=== PATIENT | female | born 1995 | race Caucasian/White ===

== ENCOUNTER 2016-06-17 05:58 | Inpatient (IN) | payer OTHER ==
--- NOTE | 2016-06-17 06:20 | EDPHY ---
H & P Stated Complaint: DKA Time Seen by Provider: 06/17/16 06:08 HPI/ROS: Chief complaint: Nausea and vomiting, ? DKA HPI: 20-year-old type 1 diabetic female presenting having woken up at 4 o' clock this morning with nausea and vomiting. Patient states she has vomited multiple times since then and is concerned that she might be going into DKA. Patient states she has been in DKA 3 times in the past and this feels similar. Denies any other recent illness. No fevers or chills. No cough. Does have some abdominal cramping associated with this. Takes NovoLog and Lantus. She carb counts for her NovoLog giving herself 1 unit for every 3 g of carbs. She takes 28 units of Lantus every evening. Last menstrual. Candid yesterday. She does not believe that she is . ROS: 10 point Review of Systems is negative except as noted in the HPI. Past medical history: Type 1 diabetes, hypothyroidism Medications: NovoLog 1 unit for every 3 g of carbs, Lantus 28 units, Synthroid Allergies: No known drug allergies Physical exam: Gen: Awake, Alert, anxious-appearing, hyperventilating HEENT: Nose: no rhinorrhea Eyes: PERRLA, EOMI Mouth: Moist mucosa Neck: Supple, no JVD Chest: nontender, lungs clear to auscultation Heart: S1, S2 normal, no murmur Abd: Soft, non-tender, no guarding Back: no CVA tenderness, no midline tenderness Ext: no edema, non-tender Skin: no rash Neuro: CN II-XII intact, Sensation grossly intact, Strength 5/5 in bilateral upper and lower extremities - Personal History LMP (Females 10-55): 1-7 Days Ago Current Tetanus/Diphtheria Vaccine: Yes - Medical/Surgical History Hx Asthma: Yes Hx Chronic Respiratory Disease: Yes Hx Diabetes: Yes Hx Cardiac Disease: No Hx Renal Disease: No Hx Cirrhosis: No Hx Alcoholism: No Hx HIV/AIDS: No Hx Splenectomy or Spleen Trauma: No Other PMH: PNEUMONIA, HYPOTHYroidism, DM TYPE 1, asthma, anxiety - Social History Smoking Status: Former smoker Constitutional: Initial Vital Signs Temperature (C) 35.5 C L 06/17/16 06:01 Heart Rate 130 H 06/17/16 06:01 Respiratory Rate 36 H 06/17/16 06:01 Blood Pressure 101/70 06/17/16 06:01 O2 Sat (%) 98 06/17/16 06:01 O2 Delivery Mode Room Air Allergies/Adverse Reactions: No Known Allergies Allergy (Verified 04/16/16 16:12) Home Medications: Medication Instructions Recorded Levothyroxine [Synthroid 50 mcg 50 mcg PO HS 07/15/13 (*)] Lisdexamfetamine Dimesylate 40 mg PO DAILY #10 capsule 01/09/15 [Vyvanse] Insulin Aspart [novoLOG] 2 - 5 unit SC AC #1 btl 02/27/15 Insulin Glargine [Lantus 100 28 units SC HS 06/19/15 UNITS/ML (*)] Medical Decision Making ED Course/Re-evaluation: I-STAT chemistry shows a blood sugar of 375 with a calculated anion gap of 24. No CO2 available yet. This is certainly consistent with possible DKA. I have ordered a L of normal saline IV over an hour. Potassium is 3.9. I have ordered 10 mEq of potassium over an hour as well. She has gotten Zofran. Will give her 0.5 mg of Ativan as well. Will hold off on insulin infusion until I get her formal chemistry back to confirm that she is acidotic. Patient weighs 60 kilos. I have estimated her to be moderately dehydrated, dose 7.5%. This calculates to a fluid deficit of 4.5 L which she will need over the course of the next 24-48 hours. Patient's white count noted to be 20. She has not have a focal source of infection clinically. I am awaiting a urinalysis which she has not had any UTI symptoms. No cough or shortness of breath. She has not had fevers recently. Patient's CO2 came back at 14, anion gap is 21, actual potassium is 4.6. I have discontinued the potassium replacement. Will start her on an insulin drip at a rate of 0.1 units/kilos per hour which at 60 kilos will come out to be 6 units an hour. Her fluid deficit shower down at 4.5 L. She has gotten an initial L over an hour here. I will replace her remainder of her deficit over the next 24 hours which is a little under 300 mL an hour IV. Case has been discussed with Dr. Fang, hospitalist. They will plan for admission to the ICU for further care. At this point I do not see a focal source of infection as the trigger for DKA. She did take her Lantus last night. He does not have any respiratory symptoms. Certainly could have an early viral syndrome. - Data Points Laboratory Results: Laboratory Results 06/17/16 06:35 06/17/16 06:55 06/17/16 06/17/16 06/17/16 07:17 06:55 06:55 WBC RBC Hgb POC Hgb Hct POC Hct MCV MCH MCHC RDW Plt Count MPV Neut % (Auto) Lymph % (Auto) [place] % (Auto) Eos % (Auto) Baso % (Auto) Nucleat RBC Rel Count Absolute Neuts (auto) Absolute Lymphs (auto) Absolute Monos (auto) Absolute Eos (auto) Absolute Basos (auto) Absolute Nucleated RBC Immature Gran % Immature Gran # POC Sodium Sodium 137 mEq/L mEq/L (134-144) POC Potassium Potassium 4.6 mEq/L mEq/L (3.5-5.2) POC Chloride Chloride 102 mEq/L mEq/L (97-110) Carbon Dioxide 14 mEq/l L mEq/l (22-31) Anion Gap 21 mEq/L H mEq/L (8-16) POC BUN BUN 12 mg/dL mg/dL (7-23) Creatinine 0.6 mg/dL mg/dL (0.6-1.0) POC Creatinine Estimated GFR > 60 Glucose 372 mg/dL H mg/dL (70-100) POC Glucose Calcium 10.0 mg/dL mg/dL (8.5-10.4) Beta-Hydroxybutyrate Pending Beta HCG, Qual NEGATIVE Serum Ketones Cancelled 06/17/16 06/17/16 06:35 06:20 WBC 20.34 10^3/uL H 10^3/uL (3.80-9.50) RBC 4.56 10^6/uL 10^6/uL (4.18-5.33) Hgb 14.4 g/dL g/dL (12.6-16.3) POC Hgb 15.3 gm/dL gm/dL (12.3-15.9) Hct 41.4 % % (38.0-47.0) POC Hct 45 % % (35.5-47.5) MCV 90.8 fL fL (81.5-99.8) MCH 31.6 pg pg (27.9-34.1) MCHC 34.8 g/dL g/dL (32.4-36.7) RDW 13.4 % % (11.5-15.2) Plt Count 359 10^3/uL 10^3/uL (150-400) MPV 9.8 fL fL (8.7-11.7) Neut % (Auto) 73.2 % % (39.3-74.2) Lymph % (Auto) 15.8 % % (15.0-45.0) [place] % (Auto) 6.9 % % (4.5-13.0) Eos % (Auto) 2.1 % % (0.6-7.6) Baso % (Auto) 0.7 % % (0.3-1.7) Nucleat RBC Rel Count 0.0 % % (0.0-0.2) Absolute Neuts (auto) 14.88 10^3/uL H 10^3/uL (1.70-6.50) Absolute Lymphs (auto) 3.22 10^3/uL H 10^3/uL (1.00-3.00) Absolute Monos (auto) 1.40 10^3/uL H 10^3/uL (0.30-0.80) Absolute Eos (auto) 0.43 10^3/uL H 10^3/uL (0.03-0.40) Absolute Basos (auto) 0.14 10^3/uL H 10^3/uL (0.02-0.10) Absolute Nucleated RBC 0.00 10^3/uL 10^3/uL (0-0.01) Immature Gran % 1.3 % H % (0.0-1.1) Immature Gran # 0.27 10^3/uL H 10^3/uL (0.00-0.10) POC Sodium 135 mEq/L mEq/L (134-144) Sodium POC Potassium 3.9 mEq/L mEq/L (3.3-5.0) Potassium POC Chloride 105 mEq/L mEq/L (96-108) Chloride Carbon Dioxide Anion Gap POC BUN 12 mg/dL mg/dL (7-23) BUN Creatinine POC Creatinine 0.4 mg/dL L mg/dL (0.6-1.2) Estimated GFR Glucose POC Glucose 375 mg/dL H mg/dL (70-100) Calcium Beta-Hydroxybutyrate Beta HCG, Qual Serum Ketones Medications Given: Discontinued Medications Sodium Chloride (Ns) 1,000 mls @ 0 mls/hr IV ONCE ONE PRN Reason: Wide Open Stop: 06/17/16 06:47 Last Admin: 06/17/16 06:35 Dose: 1,000 mls Lorazepam (Ativan Injection) 0.5 mg IVP EDNOW ONE Stop: 06/17/16 06:47 Last Admin: 06/17/16 06:50 Dose: 0.5 mg Lorazepam (Ativan Injection) 0.5 mg IVP EDNOW ONE Stop: 06/17/16 07:05 Last Admin: 06/17/16 07:08 Dose: 0.5 mg Ondansetron HCl (Zofran) 4 mg IVP EDNOW ONE Stop: 06/17/16 06:47 Last Admin: 06/17/16 06:35 Dose: 4 mg Point of Care Test Results: 06/17/16 06:20 POC Sodium 135 POC Potassium 3.9 POC Chloride 105 POC BUN 12 POC Creatinine 0.4 L POC Glucose 375 H Departure - Departure Referrals: NONE *PRIMARY CARE P,. [Primary Care Provider] - As per Instructions
[2016-06-17] MEDS ORDERED: ONDANSETRON 4 MG/2 ML VIAL ONE (06:21)
[2016-06-17] MEDS ORDERED: POTASSIUM Cl (KCl) 10 MEQ/100 ML BAG IV ONE (06:30)
[2016-06-17 06:43] LABS: RED BLOOD CELL COUNT 4.56 10^6/uL (4.18-5.33)
[2016-06-17] MEDS ORDERED: LORazepam 2 MG/ML INJ ONE ×2 (06:43→13:55)
[2016-06-17 06:44] LABS: % IMMATURE GRANULYOCYTES 1.3 % (0.0-1.1); ABSOLUTE IMMATURE GRANULOCYTES 0.27 10^3/uL (0.00-0.10); ADD DIFF? NO; ADD MORPH? NO; ADD SCAN? NO; ATYPICAL LYMPHOCYTE FLAG 10 (0-99); FRAGMENT RBC FLAG 0 (0-99); HEMATOCRIT 41.4 % (38.0-47.0); HEMOGLOBIN 14.4 g/dL (12.6-16.3); LEFT SHIFT FLG 10 (0-99); LIPEMIA HEMOLYSIS FLAG 90 (0-99); MEAN CELL HEMOGLOBIN 31.6 pg (27.9-34.1); MEAN CELL HEMOGLOBIN CONCENTR. 34.8 g/dL (32.4-36.7); MEAN CELL VOLUME 90.8 fL (81.5-99.8); MEAN PLATELET VOLUME 9.8 fL (8.7-11.7); PLATELET CLUMPS FLAG 0 (0-99); PLATELET COUNT 359 10^3/uL (150-400); RED CELL DISTRIBUTION WIDTH 13.4 % (11.5-15.2)
[2016-06-17] MEDS ORDERED: LORazepam 2 MG/ML INJ IVP ONE ×2 (06:46→07:04)
[2016-06-17] MEDS ORDERED: ONDANSETRON 4 MG/2 ML VIAL IVP ONE ×2 (06:46→08:26)
[2016-06-17] MEDS ORDERED: NS 1,000 ML IV ONE (06:46)
[2016-06-17] MEDS ORDERED: POTASSIUM Cl (KCl) 100 ML IV ONE (06:55)
[2016-06-17 07:24] LABS: ANION GAP 21 mEq/L (8-16); CARBON DIOXIDE 14 mEq/l (22-31); CHLORIDE 102 mEq/L (97-110); CREATININE 0.6 mg/dL (0.6-1.0); GLOMERULAR FILTRATION RATE > 60; GLUCOSE 372 mg/dL (70-100); POTASSIUM 4.6 mEq/L (3.5-5.2); SODIUM 137 mEq/L (134-144)
[2016-06-17] MEDS ORDERED: INSULIN REGULAR HUMAN 100 UNIT, COSIGN. REQUIRED 1 EA in NS 100 ML IV ONE (07:39)
[2016-06-17 09:18] LABS: COLOR PALE YELLOW; LEUKOCYTE ESTERASE,URINE NEGATIVE (NEGATIVE); NITRITE,URINE NEGATIVE (NEGATIVE)
--- NOTE | 2016-06-17 09:48 | PDGENHP ---
History and Physical - Chief Complaint nausea and vomiting - History of Present Illness 20 y/o female with DM1 with 3 previous admission for DKA since 2014 who presents to the ED today with nausea and vomiting. The nausea started last night prior to going to sleep. She awoke at 0400 with persistent nausea and vomiting and felt sweaty. She had run out of glucose test strips and took an Uber to the hospital where she was found to have a glucose of 372. She reports to be compliant with her home insulin regime of Lantus 28 units at bedtime as well as preprandial Novolog insulin 3-5units based on carbohydrate intake. She did miss her morning dose of Novolog. She denies any alcohol intake. She endorses proper storage of her Lantus. She denies fever or chills. Denies urinary complaints. Denies shortness of breath or chest pain. History Information - Allergies/Home Medication List Allergies/Adverse Reactions: No Known Allergies Allergy (Verified 04/16/16 16:12) Home Medications: Levothyroxine [Synthroid 50 mcg (*)] 50 mcg PO HS 07/15/13 [Last Taken 06/16/16] Insulin Glargine [Lantus 100 UNITS/ML (*)] 28 units SC HS 06/19/15 [Last Taken 06/16/16] I have personally reviewed and updated: family history, medical history, social history, surgical history Past Medical History: ADHD, hypothyroidism - Past Medical History asthma, diabetes type 1 - Surgical History Additional surgical history: sinus surgery - Family History Positive for: diabetes type I (father) - Social History Smoking Status: Former smoker Alcohol Use: None Drug Use: None Review of Systems ROS: 10pt was reviewed & negative except for what was stated in HPI & below Physical Exam Temp Pulse Resp BP Pulse Ox 37 C 105 H 20 119/52 L 96 06/17/16 08:08 06/17/16 08:08 06/17/16 08:08 06/17/16 08:08 06/17/16 08:08 Constitutional: no apparent distress, appears nourished, not in pain Ears, Nose, Mouth, Throat: moist mucous membranes, hearing normal, ears appear normal, no oral mucosal ulcers Cardiovascular: regular rate and rhythym, no murmur, rub, or gallop, No edema Respiratory: no respiratory distress, no rales or rhonchi, clear to auscultation Gastrointestinal: normoactive bowel sounds, soft, non-tender abdomen, no palpable masses, No guarding, No rebound Genitourinary: no bladder fullness, no bladder tenderness Skin: warm, normal color, no rashes or abrasions, no fluctuance, no induration, No mottled Musculoskeletal: full muscle strength, no muscle tenderness, normal joint ROM, no joint effusions Neurologic: AAOx3, CN II-XII Intact, No facial droop Psychiatric: interacting appropriately, not anxious, not encephalopathic, thought process linear Lab Data & Imaging Review 06/17/16 06:35 06/17/16 06:55 WBC 20.34 10^3/uL (3.80-9.50) H 06/17/16 06:35 RBC 4.56 10^6/uL (4.18-5.33) 06/17/16 06:35 Hgb 14.4 g/dL (12.6-16.3) 06/17/16 06:35 POC Hgb 15.3 gm/dL (12.3-15.9) 06/17/16 06:20 Hct 41.4 % (38.0-47.0) 06/17/16 06:35 POC Hct 45 % (35.5-47.5) 06/17/16 06:20 MCV 90.8 fL (81.5-99.8) 06/17/16 06:35 MCH 31.6 pg (27.9-34.1) 06/17/16 06:35 MCHC 34.8 g/dL (32.4-36.7) 06/17/16 06:35 RDW 13.4 % (11.5-15.2) 06/17/16 06:35 Plt Count 359 10^3/uL (150-400) 06/17/16 06:35 MPV 9.8 fL (8.7-11.7) 06/17/16 06:35 Neut % (Auto) 73.2 % (39.3-74.2) 06/17/16 06:35 Lymph % (Auto) 15.8 % (15.0-45.0) 06/17/16 06:35 [place] % (Auto) 6.9 % (4.5-13.0) 06/17/16 06:35 Eos % (Auto) 2.1 % (0.6-7.6) 06/17/16 06:35 Baso % (Auto) 0.7 % (0.3-1.7) 06/17/16 06:35 Nucleat RBC Rel Count 0.0 % (0.0-0.2) 06/17/16 06:35 Absolute Neuts (auto) 14.88 10^3/uL (1.70-6.50) H 06/17/16 06:35 Absolute Lymphs (auto) 3.22 10^3/uL (1.00-3.00) H 06/17/16 06:35 Absolute Monos (auto) 1.40 10^3/uL (0.30-0.80) H 06/17/16 06:35 Absolute Eos (auto) 0.43 10^3/uL (0.03-0.40) H 06/17/16 06:35 Absolute Basos (auto) 0.14 10^3/uL (0.02-0.10) H 06/17/16 06:35 Absolute Nucleated RBC 0.00 10^3/uL (0-0.01) 06/17/16 06:35 Immature Gran % 1.3 % (0.0-1.1) H 06/17/16 06:35 Immature Gran # 0.27 10^3/uL (0.00-0.10) H 06/17/16 06:35 POC Sodium 135 mEq/L (134-144) 06/17/16 06:20 Sodium 137 mEq/L (134-144) 06/17/16 06:55 POC Potassium 3.9 mEq/L (3.3-5.0) 06/17/16 06:20 Potassium 4.6 mEq/L (3.5-5.2) 06/17/16 06:55 POC Chloride 105 mEq/L (96-108) 06/17/16 06:20 Chloride 102 mEq/L (97-110) 06/17/16 06:55 Carbon Dioxide 14 mEq/l (22-31) L 06/17/16 06:55 Anion Gap 21 mEq/L (8-16) H 06/17/16 06:55 POC BUN 12 mg/dL (7-23) 06/17/16 06:20 BUN 12 mg/dL (7-23) 06/17/16 06:55 Creatinine 0.6 mg/dL (0.6-1.0) 06/17/16 06:55 POC Creatinine 0.4 mg/dL (0.6-1.2) L 06/17/16 06:20 Estimated GFR > 60 06/17/16 06:55 Glucose 372 mg/dL (70-100) H 06/17/16 06:55 POC Glucose 375 mg/dL (70-100) H 06/17/16 06:20 Calcium 10.0 mg/dL (8.5-10.4) 06/17/16 06:55 Beta-Hydroxybutyrate 6.20 mmol/L (0.02-0.27) H 06/17/16 07:17 Beta HCG, Qual NEGATIVE 06/17/16 06:55 Urine Color PALE YELLOW 06/17/16 08:45 Urine Appearance CLEAR 06/17/16 08:45 Urine pH 6.0 (5.0-7.5) 06/17/16 08:45 Ur Specific [place] 1.014 (1.002-1.030) 06/17/16 08:45 Urine Protein NEGATIVE (NEGATIVE) 06/17/16 08:45 Urine Ketones 2+ (NEGATIVE) H 06/17/16 08:45 Urine Blood 1+ (NEGATIVE) H 06/17/16 08:45 Urine Nitrate NEGATIVE (NEGATIVE) 06/17/16 08:45 Urine Bilirubin NEGATIVE (NEGATIVE) 06/17/16 08:45 Urine Urobilinogen NEGATIVE EU (0.2-1.0) 06/17/16 08:45 Ur Leukocyte Esterase NEGATIVE (NEGATIVE) 06/17/16 08:45 Urine RBC 1-3 /hpf (0-3) 06/17/16 08:45 Urine WBC 1-3 /hpf (0-3) 06/17/16 08:45 Ur Epithelial Cells TRACE /lpf (NONE-1+) 06/17/16 08:45 Urine Glucose 3+ (NEGATIVE) H 06/17/16 08:45 Serum Ketones Cancelled 06/17/16 06:55 Assessment & Plan Assessment: 20 year old female with history of IDDM presenting with # DKA with unknown precipitant -continue with phase 1 volume resuscitation per the protocol -cont IV insulin gtt until AG is closed and nausea is resolved # Leukocytosis without obvious source of infection
[2016-06-17] MEDS ORDERED: PROMETHAZINE HCL 25 MG/ML INJ IVP PRN (12:21)
[2016-06-17] MEDS ORDERED: ACETAMINOPHEN 325 MG TAB PO PRN (12:21)
[2016-06-17 13:11] LABS: ANION GAP 11 mEq/L (8-16); CALCIUM 8.3 mg/dL (8.5-10.4); CARBON DIOXIDE 15 mEq/l (22-31); CHLORIDE 113 mEq/L (97-110); CHOLESTEROL 187 mg/dL (140-200); CREATININE 0.5 mg/dL (0.6-1.0); GLOMERULAR FILTRATION RATE > 60; GLUCOSE 107 mg/dL (70-100); HIGH DENSITY LIPOPROTEIN 72 mg/dL (40-75); LDL/HDL RATIO 1.46 RATIO (1.00-3.22); LOW DENSITY LIPOPROTEIN 105 mg/dL (60-100); NON-HIGH DENSITY LIPOPROTEIN 115 mg/dL (90-129); POTASSIUM 4.6 mEq/L (3.5-5.2); SODIUM 139 mEq/L (134-144); TRIGLYCERIDE 53 mg/dL (35-135); VERY LOW DENSITY LIPOPROTEINS 10 mg/dL (8-25)
[2016-06-17 13:35] LABS: HEMOGLOBIN A1C 7.7 % (4.0-6.0)
[2016-06-17] MEDS: ONDANSETRON 4 MG/2 ML VIAL IVP PRN ×3 (13:36→23:15)
[2016-06-17] MEDS ORDERED: CEPACOL LOZENGE PO ONE (13:55)
[2016-06-17] MEDS ORDERED: INSULIN REGULAR HUMAN 100 UNIT/ML IVP PRN (14:47)
[2016-06-17] MEDS ORDERED: D50W 25 GM/50 ML SYR IVP PRN (14:47)
[2016-06-17] MEDS ORDERED: INSULIN REGULAR HUMAN 100 UNIT in NS 100 ML IV SCH (14:47)
[2016-06-17 17:56] LABS: ANION GAP 10 mEq/L (8-16); CALCIUM 8.4 mg/dL (8.5-10.4); CARBON DIOXIDE 18 mEq/l (22-31); CHLORIDE 108 mEq/L (97-110); CREATININE 0.5 mg/dL (0.6-1.0); GLOMERULAR FILTRATION RATE > 60; GLUCOSE 82 mg/dL (70-100); POTASSIUM 4.1 mEq/L (3.5-5.2); SODIUM 136 mEq/L (134-144)
[2016-06-17] MEDS: D5W 1/2 NS 1,000 ML IV SCH (19:30)
[2016-06-17] MEDS ORDERED: LEVOTHYROXINE 50 MCG TAB PO SCH (21:00)
[2016-06-17] MEDS ORDERED: INSULIN GLARGINE 100 UNITS/ML SYRINGE SC SCH (21:00)
[2016-06-17] MEDS: LORazepam 2 MG/ML INJ IVP SCH (23:15)
[2016-06-18] MEDS: INSULIN LISPRO 100 UNIT/ML SC SCH ×6 (00:14→18:23)
[2016-06-18 04:54] LABS: % IMMATURE GRANULYOCYTES 0.4 % (0.0-1.1); ABSOLUTE IMMATURE GRANULOCYTES 0.06 10^3/uL (0.00-0.10); ADD DIFF? NO; ADD MORPH? NO; ADD SCAN? NO; ATYPICAL LYMPHOCYTE FLAG 10 (0-99); FRAGMENT RBC FLAG 0 (0-99); HEMATOCRIT 37.4 % (38.0-47.0); HEMOGLOBIN 12.7 g/dL (12.6-16.3); LEFT SHIFT FLG 0 (0-99); LIPEMIA HEMOLYSIS FLAG 90 (0-99); MEAN CELL HEMOGLOBIN 31.2 pg (27.9-34.1); MEAN CELL VOLUME 91.9 fL (81.5-99.8); MEAN PLATELET VOLUME 9.5 fL (8.7-11.7); PLATELET CLUMPS FLAG 0 (0-99); PLATELET COUNT 290 10^3/uL (150-400); RED BLOOD CELL COUNT 4.07 10^6/uL (4.18-5.33); RED CELL DISTRIBUTION WIDTH 13.3 % (11.5-15.2)
[2016-06-18 05:31] LABS: ANION GAP 9 mEq/L (8-16); CARBON DIOXIDE 19 mEq/l (22-31); CHLORIDE 108 mEq/L (97-110); CREATININE 0.5 mg/dL (0.6-1.0); GLOMERULAR FILTRATION RATE > 60; GLUCOSE 128 mg/dL (70-100); SODIUM 136 mEq/L (134-144)
[2016-06-18] MEDS: LORazepam 2 MG/ML INJ IVP SCH ×3 (06:00→14:38)
[2016-06-18 08:28] VITALS: RESP 16
[2016-06-18] MEDS ORDERED: Lisdexamfetamine Dimesylate [Vyvanse] 40 MG PO SCH (09:00)
[2016-06-18] MEDS: D5W 1/2 NS 1,000 ML IV SCH (10:31)
[2016-06-18 15:42] VITALS: BP 112/68; PULSE 78; TEMP 98.6; O2SAT 96
--- NOTE | 2016-06-18 17:26 | GDS ---
[f rep st] DISCHARGE SUMMARY DISCHARGE DIAGNOSIS: Diabetic ketoacidosis, possibly triggered by gastroenteritis. HOSPITAL COURSE AND STAY BY PROBLEM: Diabetic ketoacidosis: The patient presented to the emergency department with nausea and vomiting and elevated blood sugar. The patient states that she has been compliant with her home dose of glargine and NovoLog insulin. The patient was initially treated in the intensive care unit on the DKA protocol with IV insulin and aggressive IV hydration. Insulin drip was stopped once her anion gap closed. She was restarted on her glargine on the evening of 06/17/2016. The patient has continued to have some nausea but, on d ay of discharge, she was able to tolerate her lunch and is no longer throwing up. She has not had a ny diarrhea. She has not had any fevers or chills. On the afternoon of discharge the patient states she does feel much better and is agreeable to disch arge home. PHYSICAL EXAMINATION: VITAL SIGNS: On day of discharge, blood pressure 112/68, pulse 78, respirato ry rate 16, O2 saturation 96% on room air. GENERAL: No acute distress. HEART: S1, S2. LUNGS: C lear. ABDOMEN: Soft, nontender, nondistended. No guarding or rebound tenderness. Normoactive bow el sounds. DISCHARGE MEDICATIONS: Please refer to discharge medication reconciliation in [facility] for details. Below is a preliminary list. New medications on hospital discharge: Zofran 4 mg ODT q.4 hours p.r.n. nausea and vomiting, #5 were given. Phenergan suppository 25 mg LA q.6 hours p.r.n. nausea and vomiting, dispense #2 were given, if Zofran is ineffective. DISCHARGE INSTRUCTIONS: The patient was discharged from the hospital where she was instructed to co ntinue her home glucose monitoring. She should follow up with her cleaning and washing equipment operator in the next few d ays. She should seek medical attention if she is unable to tolerate p.o. solids or fluids. /[id number]/MODL
== END 2016-06-18 18:48 | disposition home or self-care (01) | DRG 639 ==
LOC: F2N 09:42 → F3E 06-18 08:21
PROVIDERS: ADMIT Hospitalist; ATTEND Family Medicine
DX: E10.10 Type 1 diabetes mellitus with ketoacidosis without coma (principal); E03.9 Hypothyroidism, unspecified
CPT/HCPCS: 82947-QW; J1815; J2405; J2550

== ENCOUNTER 2016-09-10 21:52 | Emergency (ER) | payer OTHER ==
--- NOTE | 2016-09-10 22:44 | EDPHY ---
H & P Stated Complaint: lower abd cramping, N/V for 1 hour HPI/ROS: HPI CHIEF COMPLAINT: Lower abdominal pain, nausea, vomiting HISTORY OF PRESENT ILLNESS: This patient very pleasant 21-year-old female significant past medical history for type 1 diabetes, presents emergency room with sudden onset of severe sharp stabbing lower abdominal pain. States it happened approximately 2.5 hours ago. The symptoms persisted for an hour she had multiple episodes of vomiting. States she vomited 4 times nonbilious nonbloody. No diarrhea. No fever. Describes the pain as sharp stabbing lower abdomen. Nonradiating. States that she is 5 days late on her menstrual period. Today she developed some light vaginal spotting. States that she does not normally get severe menstrual cramps. Has never had severe pain like this. Currently her pain has resolved she does still feel nauseous. Past Medical History: Insulin-dependent diabetes, thyroid disease Past Surgical History: No abdominal surgeries Social History: Denies daily use of drugs alcohol tobacco products Family History: noncontributory ROS REVIEW OF SYSTEMS: A comprehensive 10 point review of systems is otherwise negative aside from elements mentioned in the history of present illness. Exam Constitutional triage nursing summary reviewed, vital signs reviewed, awake/ alert. Eyes normal conjunctivae and sclera, EOMI, PERRLA. HENT normal inspection, atraumatic, moist mucus membranes, no epistaxis, neck supple/ no meningismus, no raccoon eyes. Respiratory clear to auscultation bilaterally, normal breath sounds, no respiratory distress, no wheezing. Cardiovascular rate normal, regular rhythm, no murmur, no edema, distal pulses normal. Gastrointestinal soft, mild tenderness palpation right lower quadrant, no rebound, no guarding, normal bowel sounds, no distension, no pulsatile mass. Genitourinary no CVA tenderness. Musculoskeletal no midline vertebral tenderness, full range of motion, no calf swelling, no tenderness of extremities, no meningismus, good pulses, neurovascularly intact. Skin pink, warm, & dry, no rash, skin atraumatic. Neurologic awake, alert and oriented x 3, AAOx3, moves all 4 extremities equally, motor intact, sensory intact, CN II-XII intact, normal cerebellar, normal vision, normal speech. Psychiatric normal mood/affect. Heme/Lymph/Immune no lymphadenopathy. Differential diagnosis includes but is not limited to and in no particular order : Acute appendicitis, ruptured ovarian cyst, , appendicitis, gallbladder disease, diverticulitis, colitis, enteritis, perforated viscus, gastritis, GERD , esophagitis, urinary tract infection, pyelonephritis, kidney stones Medical Decision Making: Plan for this patient IV establishment, IV fluid bolus 1 L normal saline, IV Zofran 4 mg for nausea, she does not have any pain anymore will hold off on pain medicine. Check blood work including abdominal labs check and urinalysis. Given her right lower quadrant pain and nausea vomiting patient will need a CT scan abdomen pelvis with IV contrast rule out acute appendicitis. Re-evaluation: CT scan of the abdomen pelvis with IV contrast. The results of the study are negative for acute intra-abdominal process however unable to visualize the appendix due to no intra-abdominal fat, however there is no other concerning findings on CT specifically no right lower quadrant formation or lymph nodes or free fluid or free air or no signs of obstruction.. The study was read by Dr. Edwards I viewed the images myself on the PACS system. 0104AM: Re-examination at this time abdomen is soft nontender. No abdominal pain on exam. CT is unremarkable. Did explain we could not visualize her appendix however if she develops worsening abdominal pain fever vomiting she needs return emergency room she understands this. Blood work reviewed is unremarkable. She is feeling much better after IV fluids. She had 2 L here in emergency room. She is afebrile. Abdomen soft. No vomiting. Strict return precautions given she understands return emergency room for worsening symptoms abdominal pain fever vomiting. Source: Patient - Personal History LMP (Females 10-55): Over 28 Days Ago Current Tetanus/Diphtheria Vaccine: Unsure Current Tetanus Diphtheria and Acellular Pertussis (TDAP): Unsure - Medical/Surgical History Hx Asthma: Yes Hx Chronic Respiratory Disease: Yes Hx Diabetes: Yes Hx Cardiac Disease: No Hx Renal Disease: No Hx Cirrhosis: No Hx Alcoholism: No Hx HIV/AIDS: No Hx Splenectomy or Spleen Trauma: No Other PMH: PNEUMONIA, HYPOTHYroidism, DM TYPE 1, asthma, anxiety - Social History Smoking Status: Former smoker Constitutional: Initial Vital Signs Temperature (C) 36.6 C 09/10/16 21:59 Heart Rate 89 09/10/16 21:59 Respiratory Rate 18 09/10/16 21:59 Blood Pressure 130/90 H 09/10/16 21:59 O2 Sat (%) 99 09/10/16 21:59 O2 Delivery Mode Room Air Allergies/Adverse Reactions: No Known Allergies Allergy (Verified 04/16/16 16:12) Home Medications: Medication Instructions Recorded Levothyroxine [Synthroid 50 mcg 50 mcg PO HS 07/15/13 (*)] Lisdexamfetamine Dimesylate 40 mg PO DAILY #10 capsule 01/09/15 [Vyvanse] Insulin Aspart [novoLOG] 2 - 5 unit SC AC #1 btl 02/27/15 Insulin Glargine [Lantus 100 28 units SC HS 06/19/15 UNITS/ML (*)] Medical Decision Making - Diagnostics Imaging Results: Imaging Impressions Abdomen CT 09/10/16 22:49 Impression: No abnormality identified. Results discussed with Dr. Rubalcava. General information for patients regarding this examination can be found at [email or web address]. If you have questions or comments about this report, please contact me at (hospital) or [phone] (cell). - Data Points Laboratory Results: Laboratory Results 09/10/16 22:25 09/10/16 22:25 09/10/16 09/10/16 09/10/16 22:55 22:25 22:25 WBC RBC Hgb POC Hgb Hct POC Hct MCV MCH MCHC RDW Plt Count MPV Neut % (Auto) Lymph % (Auto) [place] % (Auto) Eos % (Auto) Baso % (Auto) Nucleat RBC Rel Count Absolute Neuts (auto) Absolute Lymphs (auto) Absolute Monos (auto) Absolute Eos (auto) Absolute Basos (auto) Absolute Nucleated RBC Immature Gran % Immature Gran # PT INR APTT VBG Lactic Acid 0.9 mmol/L mmol/L (0.7-2.1) POC Sodium Sodium 136 mEq/L mEq/L (134-144) POC Potassium Potassium 3.3 mEq/L L mEq/L (3.5-5.2) POC Chloride Chloride 104 mEq/L mEq/L (97-110) Carbon Dioxide 23 mEq/l mEq/l (22-31) Anion Gap 9 mEq/L mEq/L (8-16) POC BUN BUN 11 mg/dL mg/dL (7-23) Creatinine 0.5 mg/dL L mg/dL (0.6-1.0) POC Creatinine Estimated GFR > 60 Glucose 108 mg/dL H mg/dL (70-100) POC Glucose Calcium 9.4 mg/dL mg/dL (8.5-10.4) Total Bilirubin 0.6 mg/dL mg/dL (0.1-1.4) Conjugated Bilirubin 0.4 mg/dL mg/dL (0.0-0.5) Unconjugated Bilirubin 0.2 mg/dL mg/dL (0.0-1.1) AST 19 IU/L IU/L (14-46) ALT 22 IU/L IU/L (9-52) Alkaline Phosphatase 60 IU/L IU/L (38-126) Total Protein 6.7 g/dL g/dL (6.3-8.2) Albumin 4.0 g/dL g/dL (3.5-5.0) Lipase 78.0 IU/L IU/L (23-300) Beta HCG, Qual NEGATIVE 09/10/16 09/10/16 09/10/16 22:25 22:25 22:24 WBC 9.92 10^3/uL H 10^3/uL (3.80-9.50) RBC 4.39 10^6/uL 10^6/uL (4.18-5.33) Hgb 13.6 g/dL g/dL (12.6-16.3) POC Hgb 14.3 gm/dL gm/dL (12.3-15.9) Hct 39.8 % % (38.0-47.0) POC Hct 42 % % (35.5-47.5) MCV 90.7 fL fL (81.5-99.8) MCH 31.0 pg pg (27.9-34.1) MCHC 34.2 g/dL g/dL (32.4-36.7) RDW 12.2 % % (11.5-15.2) Plt Count 285 10^3/uL 10^3/uL (150-400) MPV 9.8 fL fL (8.7-11.7) Neut % (Auto) 66.6 % % (39.3-74.2) Lymph % (Auto) 19.7 % % (15.0-45.0) [place] % (Auto) 8.0 % % (4.5-13.0) Eos % (Auto) 4.3 % % (0.6-7.6) Baso % (Auto) 0.9 % % (0.3-1.7) Nucleat RBC Rel Count 0.0 % % (0.0-0.2) Absolute Neuts (auto) 6.61 10^3/uL H 10^3/uL (1.70-6.50) Absolute Lymphs (auto) 1.95 10^3/uL 10^3/uL (1.00-3.00) Absolute Monos (auto) 0.79 10^3/uL 10^3/uL (0.30-0.80) Absolute Eos (auto) 0.43 10^3/uL H 10^3/uL (0.03-0.40) Absolute Basos (auto) 0.09 10^3/uL 10^3/uL (0.02-0.10) Absolute Nucleated RBC 0.00 10^3/uL 10^3/uL (0-0.01) Immature Gran % 0.5 % % (0.0-1.1) Immature Gran # 0.05 10^3/uL 10^3/uL (0.00-0.10) PT 13.3 SEC SEC (12.0-15.0) INR 1.02 (0.83-1.16) APTT 29.1 SEC SEC (23.0-38.0) VBG Lactic Acid POC Sodium 140 mEq/L mEq/L (134-144) Sodium POC Potassium 3.1 mEq/L L mEq/L (3.3-5.0) Potassium POC Chloride 102 mEq/L mEq/L (96-108) Chloride Carbon Dioxide Anion Gap POC BUN 10 mg/dL mg/dL (7-23) BUN Creatinine POC Creatinine 0.5 mg/dL L mg/dL (0.6-1.2) Estimated GFR Glucose POC Glucose 111 mg/dL H mg/dL (70-100) Calcium Total Bilirubin Conjugated Bilirubin Unconjugated Bilirubin AST ALT Alkaline Phosphatase Total Protein Albumin Lipase Beta HCG, Qual Medications Given: Discontinued Medications Sodium Chloride (Ns) 1,000 mls @ 0 mls/hr IV ONCE ONE PRN Reason: Wide Open Stop: 09/10/16 22:50 Last Admin: 09/10/16 22:57 Dose: 1,000 mls Sodium Chloride (Ns) 1,000 mls @ 0 mls/hr IV ONCE ONE PRN Reason: Wide Open Stop: 09/11/16 00:18 Last Admin: 09/11/16 00:00 Dose: 1,000 mls Ondansetron HCl (Zofran) 4 mg IVP EDNOW ONE Stop: 09/10/16 22:50 Last Admin: 09/10/16 22:57 Dose: 4 mg Point of Care Test Results: 09/10/16 22:24 POC Sodium 140 POC Potassium 3.1 L POC Chloride 102 POC BUN 10 POC Creatinine 0.5 L POC Glucose 111 H Departure - Departure Disposition: Home, Routine, Self-Care Clinical Impression: Abdominal pain Qualifiers: Abdominal location: generalized Qualified Code(s): R10.84 - Generalized abdominal pain Condition: Good Instructions: Acute Abdominal Pain (ED) Additional Instructions: 1. return emergency room if develops worsening abdominal pain fever vomiting. Referrals: Jane King MD [Primary Care Provider] - As per Instructions
[2016-09-10] MEDS ORDERED: NS 1,000 ML IV ONE (22:49)
[2016-09-10] MEDS ORDERED: ONDANSETRON 4 MG/2 ML VIAL IVP ONE (22:49)
[2016-09-10] MEDS ORDERED: IOPAMIDOL (ISOVUE-300) 100 ML BTL ONE (22:55)
[2016-09-10 23:02] LABS: % IMMATURE GRANULYOCYTES 0.5 % (0.0-1.1); ABSOLUTE IMMATURE GRANULOCYTES 0.05 10^3/uL (0.00-0.10); ADD DIFF? NO; ADD MORPH? NO; ADD SCAN? NO; ATYPICAL LYMPHOCYTE FLAG 10 (0-99); FRAGMENT RBC FLAG 0 (0-99); HEMATOCRIT 39.8 % (38.0-47.0); HEMOGLOBIN 13.6 g/dL (12.6-16.3); LEFT SHIFT FLG 0 (0-99); LIPEMIA HEMOLYSIS FLAG 90 (0-99); MEAN CELL HEMOGLOBIN CONCENTR. 34.2 g/dL (32.4-36.7); MEAN CELL VOLUME 90.7 fL (81.5-99.8); MEAN PLATELET VOLUME 9.8 fL (8.7-11.7); PLATELET CLUMPS FLAG 10 (0-99); PLATELET COUNT 285 10^3/uL (150-400); RED BLOOD CELL COUNT 4.39 10^6/uL (4.18-5.33); RED CELL DISTRIBUTION WIDTH 12.2 % (11.5-15.2)
[2016-09-10 23:11] LABS: ALANINE AMINOTRANSFERASE 22 IU/L (9-52); ALKALINE PHOSPHATASE 60 IU/L (38-126); ANION GAP 9 mEq/L (8-16); ASPARTATE AMINOTRANSFERASE 19 IU/L (14-46); BILIRUBIN,TOTAL 0.6 mg/dL (0.1-1.4); BILIRUBIN-CONJUGATED 0.4 mg/dL (0.0-0.5); BILIRUBIN-UNCONJUGATED 0.2 mg/dL (0.0-1.1); CALCIUM 9.4 mg/dL (8.5-10.4); CARBON DIOXIDE 23 mEq/l (22-31); CHLORIDE 104 mEq/L (97-110); CREATININE 0.5 mg/dL (0.6-1.0); GLOMERULAR FILTRATION RATE > 60; GLUCOSE 108 mg/dL (70-100); POTASSIUM 3.3 mEq/L (3.5-5.2); SODIUM 136 mEq/L (134-144); TOTAL PROTEIN 6.7 g/dL (6.3-8.2)
[2016-09-10 23:12] LABS: APTT 29.1 SEC (23.0-38.0); INR 1.02 (0.83-1.16); PROTIME(PATIENT) 13.3 SEC (12.0-15.0)
[2016-09-11] MEDS ORDERED: NS 1,000 ML IV ONE (00:17)
[2016-09-11 01:34] VITALS: BP 112/67; PULSE 72; RESP 16; TEMP 98.1; O2SAT 97
== END 2016-09-11 01:33 | disposition home or self-care (01) ==
DX: R10.84 Generalized abdominal pain (principal); E10.9 Type 1 diabetes mellitus without complications; J45.909 Unspecified asthma, uncomplicated; Z79.4 Long term (current) use of insulin; Z87.891 Personal history of nicotine dependence
CPT/HCPCS: 82947-QW; 96374; J2405; Q9967

== ENCOUNTER → 2016-11-09 | Outpatient (CLI) | payer OTHER | LOC: FIMAGING 09:32 | PROVIDERS: ATTEND Family Medicine | DX: R07.9 Chest pain, unspecified (principal); R06.00 Dyspnea, unspecified ==

== ENCOUNTER 2016-11-14 14:58 | Emergency (ER) | payer OTHER ==
[2016-11-14 15:06] VITALS: TEMP 98.2; O2SAT 98
[2016-11-14] MEDS ORDERED: NS 1,000 ML IV ONE (15:20)
[2016-11-14 15:36] LABS: % IMMATURE GRANULYOCYTES 0.6 % (0.0-1.1); ABSOLUTE IMMATURE GRANULOCYTES 0.06 10^3/uL (0.00-0.10); ADD DIFF? NO; ADD MORPH? NO; ADD SCAN? NO; ATYPICAL LYMPHOCYTE FLAG 30 (0-99); FRAGMENT RBC FLAG 0 (0-99); HEMATOCRIT 41.1 % (38.0-47.0); HEMOGLOBIN 13.7 g/dL (12.6-16.3); LEFT SHIFT FLG 0 (0-99); LIPEMIA HEMOLYSIS FLAG 80 (0-99); MEAN CELL HEMOGLOBIN 30.9 pg (27.9-34.1); MEAN CELL HEMOGLOBIN CONCENTR. 33.3 g/dL (32.4-36.7); MEAN CELL VOLUME 92.6 fL (81.5-99.8); MEAN PLATELET VOLUME 9.8 fL (8.7-11.7); PLATELET CLUMPS FLAG 0 (0-99); PLATELET COUNT 262 10^3/uL (150-400); RED BLOOD CELL COUNT 4.44 10^6/uL (4.18-5.33); RED CELL DISTRIBUTION WIDTH 13.2 % (11.5-15.2)
--- NOTE | 2016-11-14 15:47 | EDPHY ---
H & P Stated Complaint: fatigue/resp inf. Time Seen by Provider: 11/14/16 15:08 HPI/ROS: CHIEF COMPLAINT: Weakness, persistent cough HISTORY OF PRESENT ILLNESS: The patient is a history of insulin-dependent diabetes. She presents to the ED with worsening weakness over the past week and a 4 week history of cough. The patient had been on azithromycin. She recently was given a prescription for Levaquin. The patient has a history of diabetic ketoacidosis in the past. She reportedly has had negative ketones at home. The patient reportedly has been bed-bound secondary to significant weakness over the past week. She reportedly has had vomiting which is not been improved with Zofran and Phenergan. The patient denies any dysuria. She reports global weakness which is moderate to severe in nature. REVIEW OF SYSTEMS: A comprehensive 10 point review of systems is otherwise negative aside from elements mentioned in the history of present illness. Source: Patient Exam Limitations: No limitations - Personal History LMP (Females 10-55): Over 28 Days Ago - Medical/Surgical History Hx Asthma: Yes Hx Chronic Respiratory Disease: Yes Hx Diabetes: Yes Hx Cardiac Disease: No Hx Renal Disease: No Hx Cirrhosis: No Hx Alcoholism: No Hx HIV/AIDS: No Hx Splenectomy or Spleen Trauma: No Other PMH: PNEUMONIA, HYPOTHYroidism, DM TYPE 1, asthma, anxiety - Social History Smoking Status: Former smoker - Physical Exam Exam: General Appearance: Alert, no distress Eyes: Pupils equal and round no pallor or injection ENT, Mouth: Mucous membranes moist Respiratory: There are no retractions, lungs are clear to auscultation Cardiovascular: Regular rate and rhythm Gastrointestinal: Abdomen is soft and nontender, no masses, bowel sounds normal Neurological: A&O, normal motor function, normal sensory exam, normal cranial nerves Skin: Warm and dry, no rashes Musculoskeletal: Neck is supple nontender Extremities: symmetrical, full range of motion Constitutional: Initial Vital Signs Temperature (C) 36.8 C 11/14/16 15:04 Heart Rate 100 11/14/16 15:04 Respiratory Rate 18 11/14/16 15:04 Blood Pressure 112/72 11/14/16 15:04 O2 Sat (%) 98 11/14/16 15:04 O2 Delivery Mode Room Air Allergies/Adverse Reactions: No Known Allergies Allergy (Verified 11/14/16 15:01) Home Medications: Medication Instructions Recorded Levothyroxine [Synthroid 50 mcg 50 mcg PO HS 07/15/13 (*)] Lisdexamfetamine Dimesylate 40 mg PO DAILY #10 capsule 01/09/15 [Vyvanse] Insulin Aspart [novoLOG] 2 - 5 unit SC AC #1 btl 02/27/15 Insulin Glargine [Lantus 100 28 units SC HS 06/19/15 UNITS/ML (*)] Levofloxacin 11/14/16 Medical Decision Making - Diagnostics Imaging Results: Imaging Impressions Obstetrics Ultrasound 11/14/16 17:05 Impression: 8 week 6 day viable intrauterine gestation. Results called to Dr. Maged Raymundo at 5:50 PM. Pelvic ultrasound: Images reviewed by myself and discussed with radiologist Dr. Ari Castorena, 8 week intrauterine noted. Normal heart tones. ED Course/Re-evaluation: The patient had an IV established. She received 2 L of normal saline. Patient presents to the ED with generalized malaise in a persistent cough. Patient's laboratory studies demonstrate evidence of hyperglycemia without diabetic ketoacidosis. The patient's serum test was noted to be positive. I re-evaluated the patient at 5:00 p.m. informing her of the workup. The patient will undergo a pelvic ultrasound for further evaluation of her status. She is not having any complaints of abdominal pain or vaginal bleeding. The patient's ultrasound does demonstrate an intrauterine . The patient informed me that this is an undesired and she will pursue termination. The patient does have a prescription for anti emetic medications. The patient will follow up with her primary care provider for follow-up next week. Per the patient's request, she did receive the referral information at least one provider Fernando who provides services. Differential Diagnosis: Differential diagnosis considered includes gastroenteritis, vomiting, dehydration, metabolic abnormality, diabetic ketoacidosis, intrauterine , ectopic - Data Points Laboratory Results: Laboratory Results 11/14/16 15:25 11/14/16 15:25 11/14/16 11/14/16 11/14/16 16:55 15:25 15:25 WBC RBC Hgb POC Hgb 15.0 gm/dL gm/dL (12.6-16.3) Hct POC Hct 44 % % (38-47) MCV MCH MCHC RDW Plt Count MPV Neut % (Auto) Lymph % (Auto) [place] % (Auto) Eos % (Auto) Baso % (Auto) Nucleat RBC Rel Count Absolute Neuts (auto) Absolute Lymphs (auto) Absolute Monos (auto) Absolute Eos (auto) Absolute Basos (auto) Absolute Nucleated RBC Immature Gran % Immature Gran # VBG pH 7.37 (7.31-7.42) POC Sodium 136 mEq/L mEq/L (134-144) Sodium POC Potassium 3.8 mEq/L mEq/L (3.3-5.0) Potassium POC Chloride 98 mEq/L mEq/L (97-110) Chloride Carbon Dioxide Anion Gap POC BUN 4 mg/dL L mg/dL (7-23) BUN Creatinine POC Creatinine 0.5 mg/dL L mg/dL (0.6-1.0) Estimated GFR Glucose POC Glucose 245 mg/dL H mg/dL (70-100) Calcium Lipase Beta HCG, Qual Urine Color YELLOW Urine Appearance CLEAR Urine pH 6.0 (5.0-7.5) Ur Specific [place] 1.010 (1.002-1.030) Urine Protein NEGATIVE (NEGATIVE) Urine Ketones NEGATIVE (NEGATIVE) Urine Blood NEGATIVE (NEGATIVE) Urine Nitrate NEGATIVE (NEGATIVE) Urine Bilirubin NEGATIVE (NEGATIVE) Urine Urobilinogen NEGATIVE EU EU (0.2-1.0) Ur Leukocyte Esterase NEGATIVE (NEGATIVE) Urine RBC 1-3 /hpf /hpf (0-3) Urine WBC 1-3 /hpf /hpf (0-3) Ur Epithelial Cells 1+ /lpf /lpf (NONE-1+) Urine Bacteria TRACE /hpf H /hpf (NONE SEEN) Urine Glucose 3+ H (NEGATIVE) Serum Ketones 11/14/16 11/14/16 11/14/16 15:25 15:25 15:25 WBC 9.24 10^3/uL 10^3/uL (3.80-9.50) RBC 4.44 10^6/uL 10^6/uL (4.18-5.33) Hgb 13.7 g/dL g/dL (12.6-16.3) POC Hgb Hct 41.1 % % (38.0-47.0) POC Hct MCV 92.6 fL fL (81.5-99.8) MCH 30.9 pg pg (27.9-34.1) MCHC 33.3 g/dL g/dL (32.4-36.7) RDW 13.2 % % (11.5-15.2) Plt Count 262 10^3/uL 10^3/uL (150-400) MPV 9.8 fL fL (8.7-11.7) Neut % (Auto) 61.6 % % (39.3-74.2) Lymph % (Auto) 21.3 % % (15.0-45.0) [place] % (Auto) 10.4 % % (4.5-13.0) Eos % (Auto) 5.3 % % (0.6-7.6) Baso % (Auto) 0.8 % % (0.3-1.7) Nucleat RBC Rel Count 0.0 % % (0.0-0.2) Absolute Neuts (auto) 5.69 10^3/uL 10^3/uL (1.70-6.50) Absolute Lymphs (auto) 1.97 10^3/uL 10^3/uL (1.00-3.00) Absolute Monos (auto) 0.96 10^3/uL H 10^3/uL (0.30-0.80) Absolute Eos (auto) 0.49 10^3/uL H 10^3/uL (0.03-0.40) Absolute Basos (auto) 0.07 10^3/uL 10^3/uL (0.02-0.10) Absolute Nucleated RBC 0.00 10^3/uL 10^3/uL (0-0.01) Immature Gran % 0.6 % % (0.0-1.1) Immature Gran # 0.06 10^3/uL 10^3/uL (0.00-0.10) VBG pH POC Sodium Sodium 134 mEq/L mEq/L (134-144) POC Potassium Potassium 4.0 mEq/L mEq/L (3.5-5.2) POC Chloride Chloride 104 mEq/L mEq/L (97-110) Carbon Dioxide 20 mEq/l L mEq/l (22-31) Anion Gap 10 mEq/L mEq/L (8-16) POC BUN BUN 6 mg/dL L mg/dL (7-23) Creatinine 0.5 mg/dL L mg/dL (0.6-1.0) POC Creatinine Estimated GFR > 60 Glucose 243 mg/dL H mg/dL (70-100) POC Glucose Calcium 9.3 mg/dL mg/dL (8.5-10.4) Lipase 57.0 IU/L IU/L (23-300) Beta HCG, Qual POSITIVE Urine Color Urine Appearance Urine pH Ur Specific [place] Urine Protein Urine Ketones Urine Blood Urine Nitrate Urine Bilirubin Urine Urobilinogen Ur Leukocyte Esterase Urine RBC Urine WBC Ur Epithelial Cells Urine Bacteria Urine Glucose Serum Ketones NEGATIVE (NEGATIVE) Medications Given: Discontinued Medications Sodium Chloride (Ns) 1,000 mls @ 0 mls/hr IV EDNOW ONE; Wide Open PRN Reason: Protocol Stop: 11/14/16 15:21 Last Admin: 11/14/16 15:29 Dose: 1,000 mls Point of Care Test Results: 11/14/16 15:25 POC Sodium 136 POC Potassium 3.8 POC Chloride 98 POC BUN 4 L POC Creatinine 0.5 L POC Glucose 245 H Departure - Departure Disposition: Home, Routine, Self-Care Clinical Impression: Bronchitis, Condition: Good Instructions: Acute Bronchitis (ED) Additional Instructions: 1. You have requested information about providers in [place] who perform elective . [facility]. Their number is [phone]. 2. Antinausea medication as needed. 3. Please return to the ED for markedly worsening symptoms or other concerns. Referrals: Jane King MD [Primary Care Provider] - As per Instructions
[2016-11-14 15:51] LABS: ANION GAP 10 mEq/L (8-16); CALCIUM 9.3 mg/dL (8.5-10.4); CARBON DIOXIDE 20 mEq/l (22-31); CHLORIDE 104 mEq/L (97-110); CREATININE 0.5 mg/dL (0.6-1.0); GLOMERULAR FILTRATION RATE > 60; GLUCOSE 243 mg/dL (70-100); SODIUM 134 mEq/L (134-144)
[2016-11-14 16:01] VITALS: RESP 16
[2016-11-14 16:29] LABS: KETONE SERUM NEGATIVE (NEGATIVE)
[2016-11-14 17:59] LABS: COLOR YELLOW; LEUKOCYTE ESTERASE,URINE NEGATIVE (NEGATIVE); NITRITE,URINE NEGATIVE (NEGATIVE)
[2016-11-14 18:01] LABS: BACTERIA TRACE /hpf (NONE SEEN)
[2016-11-14 18:32] VITALS: BP 127/88; PULSE 81
== END 2016-11-14 18:32 | disposition home or self-care (01) ==
DX: O99.511 Diseases of the respiratory system complicating pregnancy, first trimester (principal); J40 Bronchitis, not specified as acute or chronic; E10.9 Type 1 diabetes mellitus without complications; E86.9 Volume depletion, unspecified; Z3A.09 9 weeks gestation of pregnancy; Z79.4 Long term (current) use of insulin; Z87.891 Personal history of nicotine dependence
CPT/HCPCS: 82947-QW

== ENCOUNTER 2016-11-20 15:30 | Emergency (ER) | payer OTHER ==
[2016-11-20] MEDS ORDERED: NS 1,000 ML IV ONE (15:39)
[2016-11-20] MEDS ORDERED: ONDANSETRON 4 MG/2 ML VIAL IVP ONE (15:49)
[2016-11-20 15:59] LABS: % IMMATURE GRANULYOCYTES 0.8 % (0.0-1.1); ABSOLUTE IMMATURE GRANULOCYTES 0.11 10^3/uL (0.00-0.10); ADD DIFF? NO; ADD MORPH? NO; ADD SCAN? NO; ATYPICAL LYMPHOCYTE FLAG 10 (0-99); FRAGMENT RBC FLAG 0 (0-99); HEMATOCRIT 38.7 % (38.0-47.0); HEMOGLOBIN 13.4 g/dL (12.6-16.3); LEFT SHIFT FLG 0 (0-99); LIPEMIA HEMOLYSIS FLAG 90 (0-99); MEAN CELL HEMOGLOBIN 31.4 pg (27.9-34.1); MEAN CELL HEMOGLOBIN CONCENTR. 34.6 g/dL (32.4-36.7); MEAN CELL VOLUME 90.6 fL (81.5-99.8); MEAN PLATELET VOLUME 9.9 fL (8.7-11.7); PLATELET CLUMPS FLAG 0 (0-99); PLATELET COUNT 240 10^3/uL (150-400); RED BLOOD CELL COUNT 4.27 10^6/uL (4.18-5.33)
[2016-11-20 16:08] LABS: ANION GAP 14 mEq/L (8-16); CALCIUM 9.7 mg/dL (8.5-10.4); CARBON DIOXIDE 18 mEq/l (22-31); CHLORIDE 105 mEq/L (97-110); CREATININE 1.1 mg/dL (0.6-1.0); GLOMERULAR FILTRATION RATE > 60; GLUCOSE 231 mg/dL (70-100); POTASSIUM 3.6 mEq/L (3.5-5.2); SODIUM 137 mEq/L (134-144)
[2016-11-20 16:37] LABS: COLOR PALE YELLOW; LEUKOCYTE ESTERASE,URINE NEGATIVE (NEGATIVE); NITRITE,URINE NEGATIVE (NEGATIVE)
[2016-11-20 16:41] LABS: BACTERIA TRACE /hpf (NONE SEEN); RBC,URINE 15-25 /hpf (0-3); WBC,URINE 15-25 /hpf (0-3)
[2016-11-20 17:21] VITALS: RESP 18
--- NOTE | 2016-11-20 17:39 | EDPHY ---
H & P Stated Complaint: Typr 1 diab;vomiting, BS high Time Seen by Provider: 11/20/16 15:36 HPI/ROS: Chief complaint: Nausea and vomiting, elevated blood sugars History of present illness: This is a 21-year-old female with a history of insulin-dependent diabetes who presents to the emergency department for evaluation nausea and vomiting. Patient reports the onset of symptoms over the last few days. She reports her blood sugars are higher than usual ranging in the mid 200s despite taking her insulin. He does state she has recently been sick with cold symptoms and was treated with a Z-Law and levofloxacin. Further she underwent an elective on Tuesday, approximately 3 days ago. She is having some spotting. She denies other potential precipitating factors. She denies alleviating factors. She denies other associated signs or symptoms. Review of systems: A 10 point review of systems was obtained and other than described above was negative - Personal History LMP (Females 10-55): Now - Medical/Surgical History Hx Asthma: Yes Hx Chronic Respiratory Disease: Yes Hx Diabetes: Yes Hx Cardiac Disease: No Hx Renal Disease: No Hx Cirrhosis: No Hx Alcoholism: No Hx HIV/AIDS: No Hx Splenectomy or Spleen Trauma: No Other PMH: PNEUMONIA, HYPOTHYroidism, DM TYPE 1, asthma, anxiety - Social History Smoking Status: Former smoker - Physical Exam Exam: General Appearance: Alert, nontoxic. Eyes: Pupils equal and round no pallor or injection. ENT, Mouth: Mucous membranes moist. Respiratory: There are no retractions, lungs are clear to auscultation. Cardiovascular: Regular rate and rhythm. Gastrointestinal: Abdomen is soft and non tender, no masses, bowel sounds normal. Neurological: Alert and oriented x4. Strength and sensation intact and symmetrical. Skin: Warm and dry, no rashes. Musculoskeletal: Neck is supple non tender. Extremities are symmetrical, full range of motion. Psychiatric: Patient is oriented X 3, there is no agitation. Constitutional: Initial Vital Signs Temperature (C) 36.4 C 11/20/16 15:33 Heart Rate 102 H 11/20/16 15:33 Respiratory Rate 24 H 11/20/16 15:33 Blood Pressure 131/89 H 11/20/16 15:33 O2 Sat (%) 100 11/20/16 15:33 O2 Delivery Mode Room Air Allergies/Adverse Reactions: No Known Allergies Allergy (Verified 11/20/16 15:32) Home Medications: Medication Instructions Recorded Levothyroxine [Synthroid 50 mcg 50 mcg PO HS 07/15/13 (*)] Lisdexamfetamine Dimesylate 40 mg PO DAILY #10 capsule 01/09/15 [Vyvanse] Insulin Aspart [novoLOG] 2 - 5 unit SC AC #1 btl 02/27/15 Insulin Glargine [Lantus 100 28 units SC HS 06/19/15 UNITS/ML (*)] Levofloxacin 11/14/16 Medical Decision Making ED Course/Re-evaluation: Patient discussed with my secondary supervising physician Dr. Al Canales. Patient presents to the emergency department with nausea and vomiting and elevated blood sugars. On presentation she is nontoxic. Blood sugars are elevated but no evidence of complications as her gap is normal. She is IV hydrated and treated with Zofran. She is feeling better. Tolerating oral challenges. Her urinalysis does show significant findings but she recently underwent an elective , likely contamination as she is still spotting, I do not believe treatment indicated, urine culture is pending. Patient is discharged home. Home care is discussed. Strict return precautions are given. Patient voiced understanding and agreement with plan. Differential Diagnosis: Included but not limited to hyperglycemia, DKA, HHNK precipitating factors including infection - Data Points Laboratory Results: Laboratory Results 11/20/16 15:45 11/20/16 15:45 Microbiology Results: MICROBIOLOGY 11/20/16 16:10 Urine,Clean Catch Urine Culture - Final Two [place] Types Medications Given: Discontinued Medications Sodium Chloride (Ns) 1,000 mls @ 0 mls/hr IV ONCE ONE; Wide Open PRN Reason: Protocol Stop: 11/20/16 15:40 Last Admin: 11/20/16 15:55 Dose: 1,000 mls Ondansetron HCl (Zofran) 4 mg IVP EDNOW ONE Stop: 11/20/16 15:50 Last Admin: 11/20/16 15:55 Dose: 4 mg Departure - Departure Disposition: Home, Routine, Self-Care Clinical Impression: Nausea and vomiting, Hyperglycemia Condition: Good Instructions: Acute Nausea and Vomiting (ED), Diabetic Hyperglycemia (ED) Additional Instructions: Follow-up with your primary care doctor on Tuesday for recheck If symptoms worsen or new symptoms develop return to the emergency room for recheck Referrals: Jane King MD [Primary Care Provider] - As per Instructions
[2016-11-20 18:02] VITALS: BP 128/67; PULSE 86; TEMP 97.9; O2SAT 95
== END 2016-11-20 18:28 | disposition home or self-care (01) ==
DX: R11.2 Nausea with vomiting, unspecified (principal); E10.65 Type 1 diabetes mellitus with hyperglycemia; J45.909 Unspecified asthma, uncomplicated; E86.9 Volume depletion, unspecified; Z79.4 Long term (current) use of insulin; Z87.891 Personal history of nicotine dependence
CPT/HCPCS: 96374; J2405